=== PATIENT | female | born 1940 | race Two or more races ===

== ENCOUNTER 2017-04-12 06:47 | Inpatient (IN) | payer MEDICARE ==
[2017-04-12] MEDS: SODIUM CHLORIDE 0.9% 1,000 ML IV SCH (07:26)
[2017-04-12 07:45] LABS: INR 3.5 (<1.2); Prothrombin Time 33.6 sec (9.0-12.0)
[2017-04-12] MEDS ORDERED: SUCCINYLCHOLINE CHLORIDE 100 MG/5 ML SYR IV ONE (07:54)
[2017-04-12] MEDS ORDERED: PROPOFOL 10 MG/ML 20 ML VIAL IV ONE (07:54)
[2017-04-12 07:56] LABS: Anion Gap 8 mmol/L; Blood Urea Nitrogen 25 mg/dL (7-17); Calcium 9.1 mg/dL (8.4-10.2); Carbon Dioxide 28 mmol/L (22-30); Chloride 106 mmol/L (98-107); Glucose 111 mg/dL (74-99); Non-African American GFR(MDRD) >60 (>60 ml/min/1.73 sqM); Sodium 142 mmol/L (137-145)
[2017-04-12] MEDS ORDERED: ACETAMINOPHEN TAB 325 MG TAB PO PRN (08:13)
[2017-04-12] MEDS ORDERED: SODIUM CHLORIDE 0.9% 500 ML IV ONE (08:17)
--- NOTE | 2017-04-12 08:20 | P.PCN ---
Date of Procedure: 04/12/17 Preoperative Diagnosis: Persistent atrial fibrillation Postoperative Diagnosis: Conversion to sinus rhythm Procedure(s) Performed: Cardioversion Description of Procedure: Patient was brought to the unit in a fasting state. She was prepped and draped in the usual fashion. IV sedation and anesthesia was given by department of anesthesia. A single shock of 200 J was applied with anterior posterior paddles. Patient converted to sinus rhythm and subsequent a she converted to SVT. Another shock of 100 J was applied. Patient converted to sinus rhythm and has been maintaining sinus rhythm. No immediate complications. Patient will be monitored on the telemetry unit. She'll be initiated on flecainide 100 mg by mouth twice a day. If patient remains stable, patient will be discharged home tomorrow morning. Meanwhile rest of the medication be continued. Coumadin will be held because of high INR of 3.5. PT and INR will be obtained tomorrow morning
[2017-04-12] MEDS: FLECAINIDE 50 MG TAB PO SCH ×2 (09:37→20:46)
[2017-04-12 19:17] VITALS: BMI 60.0
[2017-04-12] MEDS: BUMETANIDE 1 MG TAB PO SCH (19:18)
[2017-04-12] MEDS: POTASSIUM CHLORIDE ER 10 MEQ TAB.ER.PRT PO SCH (19:18)
[2017-04-12] MEDS: METOPROLOL TARTRATE 25 MG TAB PO SCH ×2 (19:18→20:47)
[2017-04-12] MEDS: LISINOPRIL 20 MG TAB PO SCH ×2 (19:18→20:47)
[2017-04-12] MEDS ORDERED: PRAVASTATIN SODIUM 40 MG TAB PO SCH (21:00)
[2017-04-13] MEDS: SODIUM CHLORIDE 0.9% 1,000 ML IV SCH (03:45)
[2017-04-13 05:11] VITALS: RESP 18
[2017-04-13 06:14] LABS: INR 3.1 (<1.2); Prothrombin Time 29.9 sec (9.0-12.0)
--- NOTE | 2017-04-13 09:37 | P.DS ---
Providers Date of admission: 04/12/17 08:17 Attending physician: Gillian Padilla Primary care physician: Stated None - Discharge Diagnosis(es) (1) Persistent atrial fibrillation Current Visit: Yes Status: Acute (2) Atrial fibrillation status post cardioversion Current Visit: Yes Status: Acute (3) Hypertension Current Visit: Yes Status: Acute Hospital Course: This patient was brought in for elective cardioversion for persistent atrial fibrillation. Patient had a cardioversion yesterday. She had a 200 J and converted to sinus rhythm. Subsequently developed SVT requiring shock 100 J. Since then patient has been maintaining sinus rhythm. She was initiated on flecainide 100 milligrams twice daily. Patient tolerated the medication, so far well. She is maintaining sinus rhythm. Patient is being discharged home to continue home medications and flecainide 100 mg by mouth twice a day. Her INR today is 3.1 and it was 3.5 yesterday. I'm going Back the dose to 5 mg daily. She is going to have pro-time on Tuesday in our office and will suggest the dose again. Follow-up in the office in one week. Plan - Discharge Summary New Discharge Prescriptions: New Flecainide [Tambocor] 100 mg PO Q12HR #60 tab Continue Bumetanide [BUMEX] 1 mg PO DAILY Lisinopril [Prinivil] 20 mg PO BID Metoprolol Tartrate 25 mg PO BID Pravastatin Sodium [Pravachol] 40 mg PO HS Warfarin [Coumadin] 5 mg PO MOWEFRSA Warfarin [Coumadin] 7.5 mg PO SUTUTH Potassium Chloride ER [K-Dur 10] 10 meq PO DAILY Discharge Medication List Bumetanide [BUMEX] 1 mg PO DAILY 04/07/17 [History] Lisinopril [Prinivil] 20 mg PO BID 04/07/17 [History] Metoprolol Tartrate 25 mg PO BID 04/07/17 [History] Pravastatin Sodium [Pravachol] 40 mg PO HS 04/07/17 [History] Warfarin [Coumadin] 5 mg PO MOWEFRSA 04/07/17 [History] Warfarin [Coumadin] 7.5 mg PO SUTUTH 04/07/17 [History] Potassium Chloride ER [K-Dur 10] 10 meq PO DAILY 04/12/17 [History] Flecainide [Tambocor] 100 mg PO Q12HR #60 tab 04/13/17 [Rx] Follow up Appointment(s)/Referral(s): Gillian Padilla MD [STAFF PHYSICIAN] - 04/19/17 2:00 pm Patient Instructions/Handouts: Atrial Fibrillation (DC), Vitamin K in Foods (DC ), Safe Use of Anticoagulants (DC), Cardioversion (DC) Discharge Disposition: HOME SELF-CARE
[2017-04-13 10:08] VITALS: BP 142/94; PULSE 77; TEMP 97.8
[2017-04-13] MEDS: FLECAINIDE 50 MG TAB PO SCH (10:09)
[2017-04-13] MEDS: LISINOPRIL 20 MG TAB PO SCH (10:09)
[2017-04-13] MEDS: POTASSIUM CHLORIDE ER 10 MEQ TAB.ER.PRT PO SCH (10:09)
[2017-04-13] MEDS: BUMETANIDE 1 MG TAB PO SCH (10:09)
[2017-04-13] MEDS: METOPROLOL TARTRATE 25 MG TAB PO SCH (10:10)
== END 2017-04-13 11:04 | disposition home or self-care (01) | DRG 310 ==
LOC: CATHCVL 06:47 → 6SEL 08:17
PROVIDERS: ADMIT Internal Medicine Cardiovascular Disease; ATTEND Internal Medicine Cardiovascular Disease
PROC: 5A2204Z Restoration of Cardiac Rhythm, Single (ICD-10-PCS; principal; 2017-04-12 08:00)
DX: I48.1 Persistent atrial fibrillation (principal); I10 Essential (primary) hypertension; I47.1 Supraventricular tachycardia
CPT/HCPCS: 80048; 85610; 92960; 93005

== ENCOUNTER 2018-04-14 10:12 | Emergency (ER) | payer MEDICARE ==
[2018-04-14 10:19] VITALS: RESP 18
[2018-04-14] MEDS ORDERED: KETOROLAC 60 MG/2 ML VIAL IM STA (10:42)
[2018-04-14] MEDS ORDERED: MORPHINE SULFATE 4 MG/ML SYRINGE IM STA (10:42)
--- NOTE | 2018-04-14 10:46 | ED ---
General Adult HPI - General Chief complaint: Extremity Injury, Lower Stated complaint: right knee pain Time Seen by Provider: 04/14/18 10:32 Source: patient, family, RN notes reviewed Mode of arrival: EMS Limitations: no limitations - History of Present Illness Initial comments: Patient is a pleasant 77-year-old female presenting to the emergency Department with complaints of right knee pain. Onset of symptoms was last night. Patient was sitting in a chair with her legs elevated. When patient moved she is developed sudden discomfort of her right knee. Patient did not feel any pop or snap. Discomfort remained severe however is much more severe with movement. Patient is unable to try to ambulate. Patient went to bed after symptoms started last night however symptoms remain unchanged. Patient has not noticed any redness or swelling. No fever. No history of similar symptoms previously. Patient does have history of knee replacement years ago. Patient does have a recent left fibula fracture several weeks ago and is in a modified OCL secondary to not being able to tolerate walking boot. No calf pain. No chest pain. No dyspnea. Patient denies any weakness of the leg and states limitations are only because of discomfort with movement specifically at the knee. - Related Data Home Medications Medication Instructions Recorded Confirmed Bumetanide [BUMEX] 1 mg PO HS 04/07/17 04/14/18 Lisinopril [Prinivil] 20 mg PO BID 04/07/17 04/14/18 Metoprolol Tartrate 25 mg PO TID 04/07/17 04/14/18 Pravastatin Sodium [Pravachol] 40 mg PO HS 04/07/17 04/14/18 Potassium Chloride ER [K-Dur 10] 10 meq PO 04/12/17 04/14/18 Beta-Carotene [Beta Carotene] 25,000 unit PO HS 04/14/18 04/14/18 Cholecalciferol [Vitamin D3] 1,000 unit PO HS 04/14/18 04/14/18 Lutein 20 mg PO HS 04/14/18 04/14/18 [place]-3 Fatty Acids/Fish Oil [Fish 1 cap PO HS 04/14/18 04/14/18 Oil 1,000 mg Softgel] Warfarin [Coumadin] 5 mg PO HS 04/14/18 04/14/18 Previous Rx's Medication Instructions Recorded Hydrocodone/Acetaminophen [[place] 1 each PO Q4HR PRN #15 tab 04/14/18 6-325] Allergies Allergy/AdvReac Type Severity Reaction Status Date / Time No Known Allergies Allergy Verified 04/14/18 10:28 Review of Systems ROS Statement: Those systems with pertinent positive or pertinent negative responses have been documented in the HPI. ROS Other: All systems not noted in ROS Statement are negative. Constitutional: Denies: fever Eyes: Denies: eye pain ENT: Denies: ear pain Respiratory: Denies: dyspnea Cardiovascular: Denies: chest pain Endocrine: Denies: fatigue Gastrointestinal: Denies: abdominal pain Genitourinary: Denies: dysuria Musculoskeletal: Reports: arthralgia. Denies: back pain Skin: Denies: rash Neurological: Denies: weakness Past Medical History Past Medical History: Atrial Fibrillation, Deep Vein Thrombosis (DVT), GI Bleed , Osteoarthritis (OA), Pulmonary Embolus (PE) Additional Past Medical History / Comment(s): Hx. of GI bleed, @ PE's after ankle surgery. See Dr. Padilla's H&P. History of Any Multi-Drug Resistant Organisms: None Reported Past Surgical History: Breast Surgery, Hernia Repair, Hysterectomy, Orthopedic Surgery Additional Past Surgical History / Comment(s): Breast Bx. L side,R ankle surgery , umbilical hernia x 2, R knee replacement. See Dr. Padilla's H&P. Past Anesthesia/Blood Transfusion Reactions: No Reported Reaction Past Psychological History: No Psychological Hx Reported Smoking Status: Never smoker Past Alcohol Use History: None Reported Past Drug Use History: None Reported - Past Family History Mother Family Medical History: Deep Vein Thrombosis (DVT) Father Family Medical History: Cancer Additional Family Medical History / Comment(s): Skin General Exam Limitations: no limitations General appearance: alert, in no apparent distress, obese Head exam: Present: atraumatic Eye exam: Present: normal appearance Neck exam: Absent: tenderness Respiratory exam: Present: normal lung sounds bilaterally Cardiovascular Exam: Present: regular rate, normal rhythm Expanded Peripheral pulses: 2+: Dorsalis Pedis (R) GI/Abdominal exam: Present: soft. Absent: tenderness Extremities exam: Present: other (Bilateral lymphedema which patient states is chronic) Right Hip exam: Absent: tenderness Upper Leg exam: Absent: tenderness Knee exam: Present: tenderness (Especially lower medial knee.). Absent: full ROM (Pain with range of motion), swelling, ecchymosis, deformity, erythema Foot/Toe exam: Present: normal inspection Neurovascular tendon exam: Absent: abnormal cap refill Neurological exam: Present: alert Psychiatric exam: Present: normal affect, normal mood Skin exam: Present: normal color Course Vital Signs 04/14/18 04/14/18 04/14/18 10:14 11:30 14:00 Temperature 98.3 F Pulse Rate 96 97 92 Respiratory 18 18 18 Rate Blood Pressure 188/98 177/84 157/78 O2 Sat by Pulse 97 98 98 Oximetry Medical Decision Making - Medical Decision Making Patient reevaluated and improved. Patient is able to get up and ambulate following pain medication. Patient is comfortable with discharge. Patient is updated on need for close follow-up. - Radiology Data Radiology results: report reviewed (Ultrasound is limited, no definite DVT.), image reviewed (X-ray shows no acute process) Disposition Clinical Impression: Knee pain Disposition: HOME SELF-CARE Condition: Stable Instructions: Knee Pain (ED) Additional Instructions: Please follow-up with primary care physician and orthopedic doctor in the next day or 2 for recheck. If unable to follow-up with your orthopedic doctor, Dr. Tay you may follow-up with orthopedic doctor provided. Return for fever, swelling, redness, warmth of the knee, increased pain, unable to ambulate, worsening symptoms or other concerns. Prescriptions: Hydrocodone/Acetaminophen [[place] 5-325] 1 each PO Q4HR PRN #15 tab PRN Reason: Pain Is patient prescribed a controlled substance at d/c from ED?: Yes When asked, does pt state using other controlled substances?: No If prescribed controlled substance>3 days was MAPS reviewed?: Prescribed <3 Days If opioid is for acute pain is fill amount 7 days or less?: Yes If Rx opioid, was Start Talking consent form obtained?: Yes Referrals: Marline Hogue DO [Primary Care Provider] - 1-2 days Song Ho DO [Doctor of Osteopathic Medicine] - 1-2 days Time of Disposition: 15:08
--- NOTE | 2018-04-14 11:22 | XR ---
EXAMINATION TYPE: XR knee complete RT DATE OF EXAM: 04/14/2018 CLINICAL HISTORY: pain TECHNIQUE: Three views of the right knee are obtained. COMPARISON: None. FINDINGS: There is no acute fracture/dislocation. Total knee arthroplasty is in place with femoral a nd tibial components appearing well seated and intact. IMPRESSION: There is no acute fracture or dislocation.ICD 10 NO FRACTURE, INITIAL EVALUATION
--- NOTE | 2018-04-14 13:12 | US ---
EXAMINATION TYPE: US venous doppler duplex LE DATE OF EXAM: 04/14/2018 12:49 PM COMPARISON: NONE CLINICAL HISTORY: Pain. SIDE PERFORMED: Bilateral TECHNIQUE: The lower extremity deep venous system is examined utilizing real time linear array sonog tiffanie with graded compression, doppler sonography and color-flow sonography. VESSELS IMAGED: External Iliac Vein (EIV) Common Femoral Vein Deep Femoral Vein Greater Saphenous Vein * Femoral Vein Popliteal Vein Small Saphenous Vein * Proximal Calf Veins (* superficial vessels) Patient has lymphedema, excessive skin thickening, she is unable to adduct legs and is morbidly obese . Technically difficult and limited. Right Leg: Very limited visualization, appears negative from groin to distal femoral v, unable to vi sualize vessels in pop fossa or distal femoral v without color. Left Leg: Very limited visualization, appears negative from groin to distal femoral v, unable to vis ualize vessels in pop fossa or distal femoral v without color. IMPRESSION: Exam is limited as described. Deep venous thrombosis is not excluded.
[2018-04-14 15:21] VITALS: BP 169/83; PULSE 98; TEMP 98.6
== END 2018-04-14 15:21 | disposition home or self-care (01) ==
LOC: EC 10:12
DX: M25.561 Pain in right knee (principal); I48.91 Unspecified atrial fibrillation; Z79.01 Long term (current) use of anticoagulants; Z79.899 Other long term (current) drug therapy; Z86.718 Personal history of other venous thrombosis and embolism; Z86.711 Personal history of pulmonary embolism; Z96.651 Presence of right artificial knee joint
CPT/HCPCS: 73562; 93970; 99284; 96372 ×2; J2270; J1885

== ENCOUNTER 2018-08-25 14:32 | Emergency (ER) | payer MEDICARE ==
[2018-08-25 14:40] VITALS: RESP 18; TEMP 97.8
--- NOTE | 2018-08-25 15:27 | ED ---
General Adult HPI - General Chief complaint: Extremity Problem,Nontraumatic Stated complaint: Knee locked up Source: patient, RN notes reviewed Mode of arrival: wheelchair Limitations: no limitations - History of Present Illness Initial comments: Patient is a 78-year-old female with history of right knee arthroplasty, lymphedema, DVT to the right leg, PEs, and A-fib who presents to the emergency department with her son with complaint of right knee area pain that started this morning when she woke up. Denies any injury to the area. She states she takes Coumadin. She was here 04/14/2018 for a similar complaint; she states it feels very similar. Patient denies any recent fever, chills, shortness of breath , chest pain, back pain, abdominal pain, nausea or vomiting, numbness or tingling, headaches or visual changes, or any other complaints. - Related Data Home Medications Medication Instructions Recorded Confirmed Bumetanide [BUMEX] 1 mg PO HS 04/07/17 08/25/18 Lisinopril [Prinivil] 20 mg PO BID 04/07/17 08/25/18 Metoprolol Tartrate 25 mg PO TID 04/07/17 08/25/18 Pravastatin Sodium [Pravachol] 40 mg PO HS 04/07/17 08/25/18 Potassium Chloride ER [K-Dur 10] 10 meq PO 04/12/17 08/25/18 Beta-Carotene [Beta Carotene] 25,000 unit PO HS 04/14/18 08/25/18 Cholecalciferol [Vitamin D3] 1,000 unit PO 04/14/18 08/25/18 Lutein 20 mg PO 04/14/18 08/25/18 [place]-3 Fatty Acids/Fish Oil [Fish 1 cap PO HS 04/14/18 08/25/18 Oil 1,000 mg Softgel] Warfarin [Coumadin] 5 mg PO 04/14/18 08/25/18 Previous Rx's Medication Instructions Recorded Hydrocodone/Acetaminophen [[place] 1 each PO Q4HR PRN #15 tab 04/14/18 5-325] Lidocaine [Lidoderm 5% Patch] 1 patch TRANSDERM DAILY PRN #7 08/25/18 patch Allergies Allergy/AdvReac Type Severity Reaction Status Date / Time No Known Allergies Allergy Verified 08/25/18 14:40 Review of Systems ROS Statement: Those systems with pertinent positive or pertinent negative responses have been documented in the HPI. ROS Other: All systems not noted in ROS Statement are negative. Past Medical History Past Medical History: Atrial Fibrillation, Deep Vein Thrombosis (DVT), GI Bleed , Osteoarthritis (OA), Pulmonary Embolus (PE) Additional Past Medical History / Comment(s): Hx. of GI bleed, @ PE's after ankle surgery. See Dr. Padilla's H&P. History of Any Multi-Drug Resistant Organisms: None Reported Past Surgical History: Breast Surgery, Hernia Repair, Hysterectomy, Orthopedic Surgery Additional Past Surgical History / Comment(s): Breast Bx. L side,R ankle surgery , umbilical hernia x 2, R knee replacement. See Dr. Padilla's H&P. Past Anesthesia/Blood Transfusion Reactions: No Reported Reaction Past Psychological History: No Psychological Hx Reported Smoking Status: Never smoker Past Alcohol Use History: None Reported Past Drug Use History: None Reported - Past Family History Mother Family Medical History: Deep Vein Thrombosis (DVT) Father Family Medical History: Cancer Additional Family Medical History / Comment(s): Skin General Exam Limitations: no limitations General appearance: alert, in no apparent distress Head exam: Present: atraumatic, normocephalic Eye exam: Present: normal appearance Respiratory exam: Present: normal lung sounds bilaterally. Absent: wheezes, rales, rhonchi Cardiovascular Exam: Present: irregular rhythm (Patient has A-fib.) Extremities exam: Present: normal inspection (Right knee.), tenderness (With passive ROM right knee.), normal capillary refill, other (Lymphedema bilateral lower extremities.) Neurological exam: Present: alert, oriented X3 Course Vital Signs 08/25/18 08/25/18 08/25/18 14:38 15:00 16:59 Temperature 97.8 F Pulse Rate 92 82 88 Respiratory 18 18 18 Rate Blood Pressure 180/90 176/89 189/89 O2 Sat by Pulse 98 99 97 Oximetry 08/25/18 19:48 Temperature Pulse Rate 96 Respiratory Rate Blood Pressure 170/79 O2 Sat by Pulse 99 Oximetry Medical Decision Making - Medical Decision Making Ultrasound venous doppler duplex of right lower extremity is limited and cannot fully exclude DVT, but what is visualized does not reveal DVT. X-ray of the right knee reveals postoperative changes, osteopenia, joint effusion with possible loose bodies. Patient given morphine, Toradol, Flexeril and Lidoderm here for pain control. Will prescribe Lidoderm. Patient stated she needed her afternoon dose of metoprolol. Case discussed in detail with attending physician Dr. Fontenot. Disposition Clinical Impression: Knee pain Disposition: HOME SELF-CARE Condition: Good Instructions (If sedation given, give patient instructions): Knee Pain (ED) Additional Instructions: Follow-up with your PCP in 1 to 2 days. Please keep the appointment you already scheduled with your orthopedic doctor for Tuesday. Return to the emergency department if your symptoms worsen or other concerns. Prescriptions: Lidocaine [Lidoderm 5% Patch] 1 patch TRANSDERM DAILY PRN #7 patch PRN Reason: Pain Is patient prescribed a controlled substance at d/c from ED?: No Referrals: Marline Hogue DO [Primary Care Provider] - 1-2 days Time of Disposition: 20:53
[2018-08-25] MEDS ORDERED: MORPHINE SULFATE 4 MG/ML SYRINGE IM STA ×2 (15:28→16:54)
--- NOTE | 2018-08-25 15:50 | XR ---
Right knee HISTORY: Right knee pain 3 views of the right knee Comparison to prior exam 04/14/2018 Patient is status post right knee arthroplasty. There is anatomic alignment. Bone mineralization is r educed. No fracture or dislocation. Suprapatellar increased density compatible joint effusion. Postop changes are noted at the right distal tibia. Small metallic densities noted in the suprapatellar loc ation. IMPRESSION: Postop changes, osteopenia, joint effusion with possible loose bodies.
--- NOTE | 2018-08-25 16:44 | US ---
EXAMINATION TYPE: US venous doppler duplex LE RT DATE OF EXAM: 08/25/2018 4:24 PM COMPARISON: Venous Doppler Ultrasound 04/14/2018 CLINICAL HISTORY: Pain. SIDE PERFORMED: Right TECHNIQUE: The lower extremity deep venous system is examined utilizing real time linear array sonog tiffanie with graded compression, doppler sonography and color-flow sonography. FINDINGS: Grayscale, color doppler, spectral doppler imaging performed of the deep veins of the lower extremities. Morbidly obese patient making for a technically difficult study - unable to assess com pressibility throughout the middle and distal thirds of the right femoral vein. IMPRESSION: LIMITED STUDY - CANNOT FULLY EXCLUDE DVT IN THE MID AND DISTAL FEMORAL VEIN BUT THE FOLLOWING VENOUS ANATOMY IS WIDELY PATENT: proximal EIV, CFV, Deep Femoral Vein, distal Greater Saphenous Vein, and pr oximal third of the femoral vein, and the popliteal vein.
[2018-08-25] MEDS ORDERED: CYCLOBENZAPRINE 5 MG TAB PO STA (16:54)
[2018-08-25] MEDS ORDERED: METOPROLOL TARTRATE 25 MG TAB PO STA (17:50)
[2018-08-25] MEDS ORDERED: KETOROLAC 30 MG/ML 1 ML VIAL IM STA (19:35)
[2018-08-25] MEDS ORDERED: LIDOCAINE 5% PATCH TOPICAL ONE (19:36)
[2018-08-25 19:49] VITALS: BP 170/79; PULSE 96
== END 2018-08-25 21:06 | disposition home or self-care (01) ==
LOC: EC 14:32
DX: M25.561 Pain in right knee (principal); M25.461 Effusion, right knee; M85.861 Other specified disorders of bone density and structure, right lower leg; I48.91 Unspecified atrial fibrillation; R59.0 Localized enlarged lymph nodes; M19.90 Unspecified osteoarthritis, unspecified site; Z79.01 Long term (current) use of anticoagulants; Z79.899 Other long term (current) drug therapy; Z86.711 Personal history of pulmonary embolism; Z86.718 Personal history of other venous thrombosis and embolism; Z96.651 Presence of right artificial knee joint; Z83.2 Family history of diseases of the blood and blood-forming organs and certain disorders involving the immune mechanism
CPT/HCPCS: 73562; 93971; 99284; 96372 ×3; J2270; J1885